=== PATIENT | female | born 1975 | race Caucasian/White ===

== ENCOUNTER 2017-02-22 13:27 | Emergency (ER) | payer OTHER ==
[~2017-02-22] VITALS: Ht 167.6 cm; Wt 88.4 kg
[2017-02-22] MEDS ORDERED: SYNTHROID150 MCG PO (14:05)
[2017-02-22] MEDS ORDERED: MONTELUKAST SOD10 MG PO (14:06)
[2017-02-22] MEDS ORDERED: SYNTHROID175 MCG PO (14:06)
[2017-02-22] MEDS ORDERED: MOTRIN600 MG PO (15:18)
[2017-02-22 16:07] VITALS: BP 142/81
== END 2017-02-22 16:08 | disposition home or self-care (01) ==
LOC: EME 13:27
DX: S83.92XA Sprain of unspecified site of left knee, initial encounter (principal); W18.39XA Other fall on same level, initial encounter; Y93.89 Activity, other specified; F17.200 Nicotine dependence, unspecified, uncomplicated
CPT/HCPCS: 73564; 99281; 99284